=== PATIENT | male | born 1970 | race Caucasian/White ===

== ENCOUNTER 2017-09-14 10:00 | Emergency (ER) | payer OTHER ==
[~2017-09-14] VITALS: Ht 182.9 cm; Wt 99.8 kg
[2017-09-14] MEDS ORDERED: LASIX20 MG PO (10:11)
--- NOTE | 2017-09-14 19:01 | EKG ---
[facility] [address] [place] [address] Signed Normal sinus rhythm Normal ECG No previous ECGs available Confirmed by SHARRI SMITH MD ([id number]) on 09/14/2017 7:00:43 PM Electronically Signed By: SHARRI SMITH MD 09/14/17 190 PATIENT NAME: JARED BARTONONY Electrocardiogram DATE OF : 70 PHYSICIAN: SHARRI SMITH MD REPORT #: [id number] REPORT IS CONFIDENTIAL AND NOT TO BE RELEASED WITHOUT AUTHORIZATION
== END 2017-09-14 12:23 | disposition home or self-care (01) ==
LOC: ED 10:00
DX: R07.89 Other chest pain (principal); I10 Essential (primary) hypertension; Z87.891 Personal history of nicotine dependence; Z88.5 Allergy status to narcotic agent; Z79.899 Other long term (current) drug therapy
CPT/HCPCS: 71010; 80053; 83874; 84484; 85025; 85379; 93005; 93010; 96374; 99284; J1885